=== PATIENT | female | born 1975 | race Hispanic/Latino ===

== ENCOUNTER 2017-12-28 01:16 | Emergency (ER) | payer OTHER ==
[~2017-12-28] VITALS: Ht 162.6 cm; Wt 122.5 kg
[2017-12-28] MEDS ORDERED: SODIUM CHLORIDE 0.9% 1000ML 1,000 ML IV STA (01:48)
[2017-12-28] MEDS ORDERED: ONDANSETRON HCL INJ 2 MG/ML VIAL IV STA (01:48)
[2017-12-28] MEDS ORDERED: KETOROLAC TROMETHAMINE 30 MG/ML VIAL IV STA (01:48)
[2017-12-28] MEDS ORDERED: MORPHINE SULFATE 2 MG/ML SYR IV STA (01:48)
[2017-12-28 02:22] LABS: BASOPHILS # (AUTO) 0.1 (0.0-0.1); BASOPHILS % 0.4 % (0.0-1.0); EOSINOPHILS # (AUTO) 0.1 (0.0-0.4); EOSINOPHILS % 1.2 % (0.0-6.0); HEMATOCRIT 32.2 % (34.2-44.1); HEMOGLOBIN 9.9 g/dL (12.0-16.0); LYMPHOCYTES % 17.3 % (18.0-39.1); MEAN CORPUSCULAR HGB CONC 30.7 g/dL (31-35); MEAN CORPUSCULAR VOLUME 74.9 fL (81-99); MONOCYTES # (AUTO) 0.8 (0.2-0.8); MONOCYTES % 6.6 % (4.4-11.3); NEUTROPHILS # (AUTO) 8.8 (2.1-6.9); NEUTROPHILS % 74.2 % (38.7-80.0); PLATELET COUNT 393 x10e3/uL (140-360); RED CELL DISTRIBUTION WIDTH 16.9 % (11.7-14.4)
[2017-12-28 02:34] LABS: INR 1.1; PROTHROMBIN TIME 13.4 seconds (11.9-14.5)
[2017-12-28 02:44] LABS: ALANINE AMINOTRANSFERASE 28 IU/L (0-55); ALBUMIN 3.4 g/dL (3.5-5.0); ALKALINE PHOSPHATASE 96 IU/L (40-150); BLOOD UREA NITROGEN 11 mg/dL (7-26); BUN/CREATININE RATIO 15 (6-25); CALCIUM 8.6 mg/dL (8.4-10.2); CARBON DIOXIDE 22 mmol/L (22-29); CHLORIDE 108 mmol/L (98-107); CREATININE, SERUM 0.73 mg/dL (0.57-1.11); EST GLOMERULAR FILTRATION RATE > 60 ML/MIN (60-); GLUCOSE 136 mg/dL (74-118); MAGNESIUM 1.8 MG/DL (1.3-2.1); SODIUM 138 mmol/L (136-145)
[2017-12-28 02:56] LABS: PARTIAL THROMBOPLASTIN TIME 26.3 seconds (23.8-35.5)
--- NOTE | 2017-12-28 03:08 | Diagnostic Imaging Report ---
Exam: Transabdominal pelvic ultrasound Indication: Lower abdominal pain, vaginal bleeding Comparison: None Findings: Grayscale and color Doppler transabdominal images of the pelvis were obtained. The uterus measures 15.8 x 8.9 x 9.1 cm and is anteverted. Uterine fibroid measuring 4.6 x 3.9 x 4.2 cm is seen near the fundus. The endometrial stripe is mildly thickened at 1.7 cm. The right ovary measures 5 x 2.9 x 3.8 cm and the left ovary measures 3.9 x 2.9 x 2.5 cm. No adnexal masses. Trace amount of free pelvic fluid. Findings: Solitary fibroid identified measuring 4.6 cm. Mild thickening of the endometrium to 1.7 cm. Signed by: Dr. Amber Awad M.D. on 12/28/2017 3:04 AM
[2017-12-28 03:47] VITALS: BP 126/90
[2017-12-31] MEDS ORDERED: FERROUS SULFAT325 MG PO (08:31)
[2017-12-31] MEDS ORDERED: PEPCID20 MG PO (08:31)
== END 2017-12-28 04:12 | disposition home or self-care (01) ==
LOC: ER 01:31
DX: N92.1 Excessive and frequent menstruation with irregular cycle (principal); D25.0 Submucous leiomyoma of uterus; R10.2 Pelvic and perineal pain; D50.0 Iron deficiency anemia secondary to blood loss (chronic)
CPT/HCPCS: 36415; 76856; 80053; 83735; 84702; 85025; 85610; 85730; 86850; 86900; 99284; J1885; J2270; J2405; J7030

== ENCOUNTER 2017-12-30 12:51 | Observation (INO) | payer OTHER ==
[2017-12-30] VITALS (7 sets, daily range): BP systolic 106–137; BP diastolic 64–96
[~2017-12-30] VITALS: Ht 160 cm; Wt 122.5 kg
[2017-12-30] MEDS ORDERED: SODIUM CHLORIDE 0.9% 1000ML 1,000 ML IV STA (13:07)
[2017-12-30] MEDS ORDERED: ASPIRIN 81 MG CHEW TAB PO ONE (13:15)
[2017-12-30 14:02] LABS: BASOPHILS % 0.4 % (0.0-1.0); EOSINOPHILS # (AUTO) 0.2 (0.0-0.4); EOSINOPHILS % 1.7 % (0.0-6.0); HEMATOCRIT 25.4 % (34.2-44.1); HEMOGLOBIN 7.7 g/dL (12.0-16.0); LYMPHOCYTES # (AUTO) 2.9 (1.0-3.2); LYMPHOCYTES % 30.6 % (18.0-39.1); MEAN CORPUSCULAR HEMOGLOBIN 23.3 pg (28-32); MEAN CORPUSCULAR HGB CONC 30.3 g/dL (31-35); MEAN CORPUSCULAR VOLUME 76.7 fL (81-99); MONOCYTES # (AUTO) 0.6 (0.2-0.8); MONOCYTES % 6.4 % (4.4-11.3); NEUTROPHILS # (AUTO) 5.8 (2.1-6.9); NEUTROPHILS % 60.5 % (38.7-80.0); PLATELET COUNT 377 x10e3/uL (140-360); RED BLOOD COUNT 3.31 x10e6/uL (3.6-5.1); RED CELL DISTRIBUTION WIDTH 17.2 % (11.7-14.4)
[2017-12-30 14:11] LABS: BILIRUBIN,URINE NEGATIVE (NEGATIVE); CLARITY,URINE SL CLOUDY (CLEAR); COLOR,URINE YELLOW (YELLOW); KETONES,URINE NEGATIVE (NEGATIVE); LEUKOCYTE ESTERASE ,URINE TRACE (NEGATIVE); NITRITE,URINE NEGATIVE (NEGATIVE); PREGNANCY TEST, URINE NEGATIVE (NEGATIVE); PROTEIN,URINE DIPSTICK TRACE (NEGATIVE); URINE UROBILINOGEN 0.2 mg/dL (0.2 - 1)
[2017-12-30 14:19] LABS: INR 1.04; PROTHROMBIN TIME 12.8 seconds (11.9-14.5)
[2017-12-30 14:20] LABS: EPITHELIAL CELLS,URINE FEW /LPF
[2017-12-30 14:20] LABS: PARTIAL THROMBOPLASTIN TIME 17.3 seconds (23.8-35.5)
[2017-12-30 14:21] LABS: RBC,URINE >50 /HPF (0-5); WBC,URINE (MAN) 21-50 /HPF (0-5)
[2017-12-30 14:22] LABS: BACTERIA,URINE FEW /HPF
[2017-12-30 14:29] LABS: ALANINE AMINOTRANSFERASE 21 IU/L (0-55); ALBUMIN 3.5 g/dL (3.5-5.0); ALKALINE PHOSPHATASE 74 IU/L (40-150); ANION GAP 14.2 mmol/L (8-16); BLOOD UREA NITROGEN 11 mg/dL (7-26); BUN/CREATININE RATIO 15 (6-25); CARBON DIOXIDE 23 mmol/L (22-29); CHLORIDE 107 mmol/L (98-107); CREATINE KINASE 68 IU/L (29-168); CREATININE, SERUM 0.71 mg/dL (0.57-1.11); EST GLOMERULAR FILTRATION RATE > 60 ML/MIN (60-); GLUCOSE 110 mg/dL (74-118); LIPASE 40 U/L (8-78); POTASSIUM 4.2 mmol/L (3.5-5.1); SODIUM 140 mmol/L (136-145)
[2017-12-30] MEDS ORDERED: SODIUM CHLORIDE 0.9% 250ML 250 ML IV ONE ×2 (14:45→15:00)
[2017-12-30] MEDS ORDERED: SODIUM CHLORIDE FLUSH 10 ML SYR INJ PRN (15:00)
[2017-12-30] MEDS ORDERED: ONDANSETRON HCL INJ 2 MG/ML VIAL IV PRN (15:00)
--- NOTE | 2017-12-30 15:25 | Diagnostic Imaging Report ---
EXAMINATION: CHEST SINGLE (PORTABLE) INDICATION: Dizziness. Fast heart rate. COMPARISON: None FINDINGS: AP view TUBES and LINES: None. LUNGS: Lungs are not well inflated. Lungs are clear. There is no evidence of pneumonia or pulmonary edema. PLEURA: No pleural effusion or pneumothorax. HEART AND MEDIASTINUM: The cardiomediastinal silhouette is unremarkable. BONES AND SOFT TISSUES: No acute osseous lesion. Soft tissues are unremarkable. UPPER ABDOMEN: No free air under the diaphragm. IMPRESSION: No acute thoracic abnormality. Signed by: Dr. Tomer Ricci M.D. on 12/30/2017 3:21 PM
[2017-12-30] MEDS ORDERED: CEFTRIAXONE SOD 1 GM VIAL IV SCH (15:30)
[2017-12-30 15:52] LABS: FERRITIN 10.93 ng/mL (4.63-204.00)
[2017-12-30] MEDS ORDERED: MORPHINE SULFATE 2 MG/ML SYR IV PRN (17:00)
[2017-12-30] MEDS ORDERED: LEVOFLOXACIN 500MG/D5W 100ML 100 ML IV SCH ×2 (17:00→20:00)
[2017-12-30] MEDS ORDERED: METOPROLOL SUCC25 MG PO (17:17)
[2017-12-31 00:20] VITALS: BP 131/80
[2017-12-31 00:32] VITALS: BP 135/82
[2017-12-31 00:40] VITALS: BP 120/70
[2017-12-31 05:27] VITALS: BP 124/74
[2017-12-31 06:28] LABS: BASOPHILS # (AUTO) 0.1 (0.0-0.1); BASOPHILS % 0.5 % (0.0-1.0); EOSINOPHILS # (AUTO) 0.1 (0.0-0.4); EOSINOPHILS % 1.4 % (0.0-6.0); HEMATOCRIT 29.4 % (34.2-44.1); HEMOGLOBIN 9.7 g/dL (12.0-16.0); LYMPHOCYTES # (AUTO) 3.1 (1.0-3.2); LYMPHOCYTES % 33.6 % (18.0-39.1); MEAN CORPUSCULAR HEMOGLOBIN 25.9 pg (28-32); MEAN CORPUSCULAR VOLUME 78.4 fL (81-99); MONOCYTES # (AUTO) 0.7 (0.2-0.8); MONOCYTES % 7.1 % (4.4-11.3); NEUTROPHILS # (AUTO) 5.1 (2.1-6.9); NEUTROPHILS % 56.1 % (38.7-80.0); PLATELET COUNT 367 x10e3/uL (140-360); RED BLOOD COUNT 3.75 x10e6/uL (3.6-5.1); RED CELL DISTRIBUTION WIDTH 17.2 % (11.7-14.4)
[2017-12-31 07:34] VITALS: BP 124/74
[2017-12-31 08:00] VITALS: BP 123/87
[2017-12-31] MEDS ORDERED: FERROUS SULFAT325 MG PO (08:31)
[2017-12-31] MEDS ORDERED: PEPCID20 MG PO (08:31)
[2017-12-31] MEDS ORDERED: METOPROLOL SUCCINATE 25 MG TAB XL PO SCH (09:00)
[2017-12-31] MEDS ORDERED: SODIUM FERRIC GLUCONATE COMPLX 125 MG in SODIUM CHLORIDE 0.9% 100 ML 100 ML IV SCH (09:00)
--- NOTE | 2017-12-31 09:45 | Discharge Summary ---
PRINCIPAL DIAGNOSES 1. Microcytic anemia. 2. Iron deficiency anemia, status post blood transfusion. 3. Urinary tract infection. 4. Hypertension. SECONDARY DIAGNOSIS: Hypertension. CHIEF COMPLAINT: Vaginal bleeding. HISTORY OF PRESENT ILLNESS: A 42-year-old woman with prolonged vaginal bleeding. Refer to the H and P for further details. HOSPITAL COURSE: Patient had prolonged vaginal bleeding for 22 days. This is typical for her. She has not seen a speech language therapist in the last 11 years. She was given 2 units of packed red blood cells and IV iron infusion. Will be discharged home with oral iron and Pepcid. Also, treated for urinary tract infection with Levaquin. She will follow up with [facility] for gynecology evaluation tomorrow. SOLOMON BOWSER MD Job#: [id number] [place]
--- NOTE | 2017-12-31 10:26 | History and Physical ---
PRIMARY CARE PHYSICIAN: Dr. Bowden CHIEF COMPLAINT: Fatigue and vaginal bleeding. HISTORY OF PRESENT ILLNESS: A 42-year-old woman with a history of anemia and prolonged vaginal bleeding, who has not seen an AUTOMATIC EDGER in the last 11 years, now having continued vaginal bleeding ongoing for 22 days. She normally has periods lasting about 22 days. Uses about 8 pads a day. She has not seen a spring internship in the last 11 years. Here she was found to be anemic. She was admitted for further evaluation and management. Denies any abdominal pain or pelvic pain. PAST MEDICAL HISTORY: Anemia, hyperlipidemia, hypertension, prolonged vaginal bleeding. PAST SURGICAL HISTORY: Cholecystectomy. ALLERGIES: PER ELECTRONIC MEDICAL RECORD. FAMILY HISTORY/SOCIAL HISTORY: Patient is . She has 3 children. No alcohol, illicits or cigarettes. MEDICATIONS: Per electronic medical record. REVIEW OF SYSTEMS: Denies any dizziness or chest pain. PHYSICAL EXAMINATION VITAL SIGNS: Reviewed. GENERAL: A tired-appearing woman resting in bed. HEENT: Anicteric. CARDIOVASCULAR: Normal S1 and S2. LUNGS: Moderate breath sounds. ABDOMEN: Soft, nontender and nondistended. EXTREMITIES: No edema or calf tenderness. NEUROLOGICAL: Alert and oriented times 3. Moving all extremities. SKIN: Dry. PSYCHIATRIC: Normal affect. LABS: Reviewed. MEDICATIONS: Reviewed. ASSESSMENT: This is a 42-year-old woman with: 1. Microcytic anemia. 2. Iron deficiency anemia. 3. Urinary tract infection. 4. Hypertension. 5. Menorrhagia. PLAN 1. Transfuse 2 units of blood. 2. Give IV iron. 3. Start on ferrous sulfate. The patient is iron deficient. 4. Treat with Levaquin for urinary tract infection. 5. I have counseled the patient on need to see an AUTOMATIC EDGER, although her insurance does not cover it. We will set her up with the [facility] for AUTOMATIC EDGER evaluation tomorrow. 6. Patient will likely be discharged later today. Job#: [id number] [place]
[2017-12-31] MEDS ORDERED: FAMOTIDINE 20 MG TAB PO SCH (16:30)
[2017-12-31] MEDS ORDERED: FERROUS SULFATE 325 MG TAB PO SCH (17:00)
== END 2017-12-31 10:35 | disposition home or self-care (01) ==
LOC: ER 12:51 → ERHOLD 15:03 → MED/SURG2 15:33
PROVIDERS: ADMIT Internal Medicine; ATTEND Internal Medicine
DX: D50.9 Iron deficiency anemia, unspecified (principal); D64.9 Anemia, unspecified; N92.0 Excessive and frequent menstruation with regular cycle; N39.0 Urinary tract infection, site not specified; I10 Essential (primary) hypertension
CPT/HCPCS: 36430; P9016; 36415; 71045; 80053; 81001; 81025; 82550; 82553; 82728; 83540; 83690; 84466; 84484; 85025; 85610; 85730; 86850; 86900; 86920; 87086; 93005; 99284; G0378; J0696; J1956; J2916; J7030

== ENCOUNTER 2018-01-11 05:20 | Emergency (ER) | payer OTHER ==
[~2018-01-11] VITALS: Ht 160 cm; Wt 122.5 kg
[~2018-01-11 05:20] MED LIST: FERROUS SULFAT325 MG PO; METOPROLOL SUCC25 MG PO; PEPCID20 MG PO
[2018-01-11 05:51] LABS: BASOPHILS % 0.5 % (0.0-1.0); EOSINOPHILS # (AUTO) 0.2 (0.0-0.4); EOSINOPHILS % 2.4 % (0.0-6.0); HEMATOCRIT 36.3 % (34.2-44.1); HEMOGLOBIN 11.3 g/dL (12.0-16.0); LYMPHOCYTES # (AUTO) 2.9 (1.0-3.2); LYMPHOCYTES % 34.1 % (18.0-39.1); MEAN CORPUSCULAR HEMOGLOBIN 25.5 pg (28-32); MEAN CORPUSCULAR HGB CONC 31.1 g/dL (31-35); MEAN CORPUSCULAR VOLUME 81.9 fL (81-99); MONOCYTES # (AUTO) 0.5 (0.2-0.8); MONOCYTES % 6.1 % (4.4-11.3); NEUTROPHILS # (AUTO) 4.8 (2.1-6.9); NEUTROPHILS % 56.5 % (38.7-80.0); PLATELET COUNT 441 x10e3/uL (140-360); RED BLOOD COUNT 4.43 x10e6/uL (3.6-5.1); RED CELL DISTRIBUTION WIDTH 18.5 % (11.7-14.4)
[2018-01-11 06:07] LABS: ALANINE AMINOTRANSFERASE 21 IU/L (0-55); ALBUMIN 3.7 g/dL (3.5-5.0); ALKALINE PHOSPHATASE 103 IU/L (40-150); ANION GAP 14.4 mmol/L (8-16); BLOOD UREA NITROGEN 14 mg/dL (7-26); BUN/CREATININE RATIO 19 (6-25); CALCIUM 9.1 mg/dL (8.4-10.2); CARBON DIOXIDE 20 mmol/L (22-29); CHLORIDE 108 mmol/L (98-107); CREATININE, SERUM 0.72 mg/dL (0.57-1.11); EST GLOMERULAR FILTRATION RATE > 60 ML/MIN (60-); GLUCOSE 98 mg/dL (74-118); POTASSIUM 4.4 mmol/L (3.5-5.1); SODIUM 138 mmol/L (136-145)
[2018-01-11 06:48] VITALS: BP 132/87
--- NOTE | 2018-01-11 06:57 | Diagnostic Imaging Report ---
EXAMINATION: CHEST SINGLE (PORTABLE) INDICATION: Shortness of breath COMPARISON: 12/30/2017 FINDINGS: TUBES and LINES: None. LUNGS: Lungs are not well inflated. Lungs are clear. There is no evidence of pneumonia or pulmonary edema. PLEURA: No pleural effusion or pneumothorax. HEART AND MEDIASTINUM: The cardiomediastinal silhouette is unremarkable. BONES AND SOFT TISSUES: No acute osseous lesion. Soft tissues are unremarkable. UPPER ABDOMEN: No free air under the diaphragm. IMPRESSION: No acute thoracic abnormality. Signed by: Dr. Carlito Bell M.D. on 01/11/2018 6:54 AM
== END 2018-01-11 06:59 | disposition home or self-care (01) ==
LOC: ER 05:20
DX: R00.2 Palpitations (principal); R07.89 Other chest pain; N92.0 Excessive and frequent menstruation with regular cycle; D64.9 Anemia, unspecified; I10 Essential (primary) hypertension; J45.909 Unspecified asthma, uncomplicated
CPT/HCPCS: 36415; 71045; 80053; 82550; 82553; 84484; 85025; 86850; 86900; 93005; 99284

== ENCOUNTER 2018-01-30 15:27 | Observation (INO) | payer OTHER ==
[~2018-01-30] VITALS: Ht 160 cm; Wt 101.6 kg
[2018-01-30] MEDS ORDERED: SODIUM CHLORIDE 0.9% 1000ML 1,000 ML IV STA (15:46)
[2018-01-30] MEDS ORDERED: ONDANSETRON HCL INJ 2 MG/ML VIAL IV PRN (16:00)
[2018-01-30] MEDS ORDERED: ACETAMINOPHEN 325 MG TAB PO PRN (16:00)
[2018-01-30 16:04] LABS: BASOPHILS % 0.5 % (0.0-1.0); EOSINOPHILS # (AUTO) 0.2 (0.0-0.4); LYMPHOCYTES # (AUTO) 3.1 (1.0-3.2); LYMPHOCYTES % 36.8 % (18.0-39.1); MEAN CORPUSCULAR HGB CONC 31.2 g/dL (31-35); MEAN CORPUSCULAR VOLUME 80.1 fL (81-99); MONOCYTES # (AUTO) 0.6 (0.2-0.8); MONOCYTES % 7.1 % (4.4-11.3); NEUTROPHILS # (AUTO) 4.5 (2.1-6.9); NEUTROPHILS % 53.2 % (38.7-80.0); PLATELET COUNT 413 x10e3/uL (140-360); RED BLOOD COUNT 2.76 x10e6/uL (3.6-5.1)
[2018-01-30 16:10] LABS: HEMATOCRIT 22.1 % (34.2-44.1); HEMOGLOBIN 6.9 g/dL (12.0-16.0)
[2018-01-30] MEDS ORDERED: SODIUM CHLORIDE 0.9% 1000ML 1,000 ML IV ONE (16:30)
--- NOTE | 2018-01-30 16:32 | Diagnostic Imaging Report ---
PROCEDURE: A single AP view of the chest. COMPARISON: None. INDICATIONS: HIGH HR, SOB, CHEST PAIN TODAY FINDINGS: Lines/tubes: None. Lungs: The lungs are well inflated and clear. There is no evidence of pneumonia or pulmonary edema. Pleura: There is no pleural effusion or pneumothorax. Heart and mediastinum: The heart and the mediastinum are unremarkable. Bones: No acute bony abnormality. IMPRESSION: 1. No acute cardiopulmonary abnormalities. Cornelio Reyez M.D. Dictated by: Cornelio Reyez M.D. on 01/30/2018 at 16:37 Electronically approved by: Cornelio Reyez M.D. on 01/30/2018 at 16:37
[2018-01-30 16:48] LABS: ANION GAP 14.6 mmol/L (8-16); BLOOD UREA NITROGEN 7 mg/dL (8-26); BUN/CREATININE RATIO 9 (6-25); CARBON DIOXIDE 26 mmol/L (22-32); CHLORIDE 104 mmol/L (101-111); CREATININE, SERUM 0.8 mg/dL (0.6-1.1); EST GLOMERULAR FILTRATION RATE > 60 ML/MIN (60-); POTASSIUM 3.6 mmol/L (3.6-5.1); SODIUM 141 mmol/L (136-144)
[2018-01-30 16:49] LABS: GLUCOSE 105 mg/dL (74-118)
[2018-01-30] MEDS ORDERED: FAMOTIDINE 20 MG/2 ML VIAL IV NR (17:00)
[2018-01-30] MEDS ORDERED: DIPHENHYDRAMINE HCL INJ 50 MG/ML VIAL IV NR (17:00)
[2018-01-30] MEDS ORDERED: ACETAMINOPHEN 325 MG TAB PO NR (17:00)
[2018-01-30 17:33] VITALS: BP 153/74
[2018-01-30 20:00] VITALS: BP 144/86
[2018-01-30 21:33] VITALS: BP 144/86
[2018-01-30 21:34] LABS: ALANINE AMINOTRANSFERASE 21 IU/L (0-55); ALBUMIN 3.9 g/dL (3.5-5.0); ALBUMIN/GLOBULIN RATIO 1.5 (0.8-2.0); ALKALINE PHOSPHATASE 84 IU/L (40-150); CREATINE KINASE 181 IU/L (29-168); MAGNESIUM 2.1 MG/DL (1.3-2.1)
[2018-01-30] MEDS ORDERED: SODIUM CHLORIDE 0.9% 250ML 250 ML ONE (21:56)
[2018-01-30] MEDS: FERROUS SULFATE 325 MG TAB PO SCH (22:00)
[2018-01-30 22:27] LABS: FERRITIN 9.37 ng/mL (4.63-204.00)
[2018-01-30] MEDS: MEDROXYPROGESTERONE ACETATE 2.5 MG TAB PO SCH (23:29)
--- NOTE | 2018-01-30 23:58 | History and Physical ---
PRIMARY CARE PHYSICIAN: Dr. Elmo Jain CHIEF COMPLAINT: Fatigue and weakness. HISTORY OF PRESENT ILLNESS: This is a 42-year-old woman with a history of vaginal bleeding, who had lost lot of blood on Monday secondary to vaginal bleeding. Has not been able to see a blender snuff since followup in the clinic with me due to problems with obtaining her Gold Card, now patient feeling fatigue, weak, brought to hospital by her , found to have a hemoglobin of 6.9. She is admitted for transfusion and further evaluation and management. PAST MEDICAL HISTORY: Anemia status post transfusion, hyperlipidemia, hypertension, prolonged vaginal bleeding, urinary tract infection, morbid obesity. PAST SURGICAL HISTORY: Cholecystectomy. ALLERGIES: PER ELECTRONIC MEDICAL RECORD. FAMILY/SOCIAL HISTORY: Patient is . She has 3 children. No alcohol, illicits, or cigarettes. MEDICATIONS: Per electronic medical record. REVIEW OF SYSTEMS: Denies any dizziness, chest pain, shortness of breath, fever, chills, sweats, nausea, vomiting, diarrhea. PHYSICAL EXAMINATION: VITAL SIGNS: Have been reviewed. GENERAL APPEARANCE: Tired-appearing woman resting in bed. HEENT: Anicteric. Pupils respond to light. No oral lesions. CARDIOVASCULAR: Normal S1 and S2. LUNGS: Moderate breath sounds. ABDOMEN: Soft, nontender, nondistended. EXTREMITIES: No edema or calf tenderness. NEUROLOGICAL: Alert and oriented x3. Moving all extremities. SKIN: Dry. PSYCHIATRIC: Normal affect. LABS: Reviewed. MEDICATIONS: Reviewed. ASSESSMENT: [id number]-old woman: 1. Severe anemia. 2. Morbid obesity. 3. Vaginal bleeding. 4. Hypertension. PLAN: 1. Obtain anemia panel. 2. Give 2 to 3 units packed red blood cells transfusion. 3. Screen for diabetes and obtain a lipid panel. 4. Use SCD and Pepcid. 5. Start patient on medroxyprogesterone until she is able to see a blender snuff. Job#: [id number]
[2018-01-31] VITALS: BP 138/82
[2018-01-31 04:00] VITALS: BP 128/78
[2018-01-31 04:50] LABS: BASOPHILS % 0.5 % (0.0-1.0); EOSINOPHILS # (AUTO) 0.2 (0.0-0.4); EOSINOPHILS % 2.5 % (0.0-6.0); HEMATOCRIT 27.9 % (34.2-44.1); LYMPHOCYTES # (AUTO) 2.9 (1.0-3.2); LYMPHOCYTES % 37.8 % (18.0-39.1); MEAN CORPUSCULAR HEMOGLOBIN 26.2 pg (28-32); MEAN CORPUSCULAR HGB CONC 32.3 g/dL (31-35); MEAN CORPUSCULAR VOLUME 81.1 fL (81-99); MONOCYTES # (AUTO) 0.7 (0.2-0.8); MONOCYTES % 9.1 % (4.4-11.3); NEUTROPHILS # (AUTO) 3.8 (2.1-6.9); NEUTROPHILS % 49.8 % (38.7-80.0); PLATELET COUNT 388 x10e3/uL (140-360); RED BLOOD COUNT 3.44 x10e6/uL (3.6-5.1); RED CELL DISTRIBUTION WIDTH 15.8 % (11.7-14.4)
[2018-01-31 05:13] LABS: CREATINE KINASE 127 IU/L (29-168)
[2018-01-31 06:08] LABS: CHOL/HDL RATIO 2.7 (3.0-3.6)
[2018-01-31] MEDS ORDERED: MEDROXYPROGEST2.5 MG PO (06:27)
[2018-01-31] MEDS ORDERED: FAMOTIDINE 20 MG TAB PO SCH (07:30)
[2018-01-31 07:38] VITALS: BP 128/78
[2018-01-31 07:47] VITALS: BP 117/76
--- NOTE | 2018-01-31 08:20 | Discharge Summary ---
PRINCIPAL DIAGNOSES 1. Severe anemia. 2. Morbid obesity. 3. Vaginal bleeding. 4. Hypertension. SECONDARY DIAGNOSIS: Vaginal bleeding. CHIEF COMPLAINT: Fatigue. HISTORY OF PRESENT ILLNESS: This is a 42-year-old woman with a history of vaginal bleeding now developing fatigue. Refer to the H and P for further details. HOSPITAL COURSE: The patient was found to have severe anemia and received 3 units of packed red blood cell transfusion. Hemoglobin improved to 9. She has also been started on medroxyprogesterone for her vaginal bleeding. She will follow up with her auxiliary powerplant operator soon as soon as the insurance permits. DISCHARGE MEDICATIONS: Per electronic medical record. FOLLOWUP 1. Primary care doctor in 1 week. 2. Railway Yard Assistant in 3-5 days. SOLOMON BOWSER MD Job#: [id number] [place]
[2018-01-31] MEDS: FERROUS SULFATE 325 MG TAB PO SCH (08:30)
[2018-01-31] MEDS: MEDROXYPROGESTERONE ACETATE 2.5 MG TAB PO SCH (08:53)
[2018-01-31] MEDS ORDERED: METOPROLOL SUCCINATE 25 MG TAB XL PO SCH (09:00)
== END 2018-01-31 09:15 | disposition home or self-care (01) ==
LOC: ER 15:27 → ERHOLD 16:20 → IMCU 17:10
PROVIDERS: ADMIT Internal Medicine; ATTEND Internal Medicine
DX: D64.9 Anemia, unspecified (principal); R07.89 Other chest pain; N93.9 Abnormal uterine and vaginal bleeding, unspecified; E66.01 Morbid (severe) obesity due to excess calories; I10 Essential (primary) hypertension; E78.5 Hyperlipidemia, unspecified; R53.83 Other fatigue; Z68.39 Body mass index [BMI] 39.0-39.9, adult
CPT/HCPCS: 36415 ×2; 36430 ×3; 71045; 80053; 80061; 82550 ×2; 82553 ×2; 82607; 82728; 83036; 83540; 83735; 83880; 84466; 84484 ×2; 84702; 85025 ×2; 86850; 86900; 86920; 93005; 99284; G0378 ×2; J7030; J7050; P9016 ×2; J2405

== ENCOUNTER 2018-02-25 06:18 | Emergency (ER) | payer OTHER ==
[~2018-02-25] VITALS: Ht 160 cm; Wt 101.6 kg
[~2018-02-25 06:18] MED LIST changes: +MEDROXYPROGEST2.5 MG PO
[2018-02-25] MEDS ORDERED: SODIUM CHLORIDE 0.9% 1000ML 1,000 ML IV STA (06:36)
[2018-02-25 06:58] LABS: BASOPHILS % 0.7 % (0.0-1.0); EOSINOPHILS # (AUTO) 0.1 (0.0-0.4); EOSINOPHILS % 2.3 % (0.0-6.0); HEMATOCRIT 32.7 % (34.2-44.1); HEMOGLOBIN 10.1 g/dL (12.0-16.0); LYMPHOCYTES # (AUTO) 1.9 (1.0-3.2); LYMPHOCYTES % 31.2 % (18.0-39.1); MEAN CORPUSCULAR HGB CONC 30.9 g/dL (31-35); MEAN CORPUSCULAR VOLUME 84.1 fL (81-99); MONOCYTES # (AUTO) 0.4 (0.2-0.8); MONOCYTES % 6.9 % (4.4-11.3); NEUTROPHILS # (AUTO) 3.6 (2.1-6.9); NEUTROPHILS % 58.6 % (38.7-80.0); PLATELET COUNT 362 x10e3/uL (140-360); RED BLOOD COUNT 3.89 x10e6/uL (3.6-5.1)
[2018-02-25 07:00] LABS: INR 1.06
[2018-02-25 07:01] LABS: PARTIAL THROMBOPLASTIN TIME 27.5 seconds (23.8-35.5)
[2018-02-25 07:08] LABS: ALANINE AMINOTRANSFERASE 17 IU/L (0-55); ALBUMIN 3.6 g/dL (3.5-5.0); ALBUMIN/GLOBULIN RATIO 1.2 (0.8-2.0); ALKALINE PHOSPHATASE 65 IU/L (40-150); BLOOD UREA NITROGEN 11 mg/dL (7-26); BUN/CREATININE RATIO 15 (6-25); CALCIUM 8.8 mg/dL (8.4-10.2); CARBON DIOXIDE 23 mmol/L (22-29); CHLORIDE 106 mmol/L (98-107); CREATININE, SERUM 0.74 mg/dL (0.57-1.11); EST GLOMERULAR FILTRATION RATE > 60 ML/MIN (60-); GLUCOSE 106 mg/dL (74-118); SODIUM 138 mmol/L (136-145)
[2018-02-25 07:52] VITALS: BP 103/67
== END 2018-02-25 07:54 | disposition home or self-care (01) ==
LOC: ER 06:18
DX: N93.9 Abnormal uterine and vaginal bleeding, unspecified (principal); D25.0 Submucous leiomyoma of uterus
CPT/HCPCS: 36415; 80053; 84702; 85025; 85610; 85730; 86850; 86900; 93005; 99284; J7030

== ENCOUNTER 2024-07-22 21:53 | Emergency (ER) | payer OTHER ==
[~2024-07-22] VITALS: Ht 165.1 cm; Wt 108.9 kg
[2024-07-22] MEDS: ACETAMINOPHEN 325 MG TAB PO ONE (22:19)
[2024-07-22 22:25] LABS: BASOPHILS # (AUTO) 0.1 (0.0-0.1); BASOPHILS % 0.7 % (0.0-1.0); EOSINOPHILS # (AUTO) 0.3 (0.0-0.4); EOSINOPHILS % 3.7 % (0.0-6.0); HEMATOCRIT 42.2 % (34.2-44.1); HEMOGLOBIN 12.9 g/dL (12.0-16.0); LYMPHOCYTES # (AUTO) 3.2 (1.0-3.2); LYMPHOCYTES % 44.4 % (18.0-39.1); MEAN CORPUSCULAR HEMOGLOBIN 26.9 pg (28-32); MEAN CORPUSCULAR HGB CONC 30.6 g/dL (31-35); MEAN CORPUSCULAR VOLUME 88.1 fL (81-99); MONOCYTES # (AUTO) 0.5 (0.2-0.8); MONOCYTES % 7.3 % (4.4-11.3); NEUTROPHILS # (AUTO) 3.2 (2.1-6.9); NEUTROPHILS % 43.8 % (38.7-80.0); PLATELET COUNT 330 x10e3/uL (140-360); RED BLOOD COUNT 4.79 x10e6/uL (3.6-5.1); RED CELL DISTRIBUTION WIDTH 13.4 % (11.7-14.4); WHITE BLOOD COUNT 7.26 x10e3/uL (4.8-10.8)
[2024-07-22] MEDS: ONDANSETRON HCL INJ 2MG/ML 2ML 2 MG/ML VIAL IV STA (22:30)
[2024-07-22 22:47] LABS: ALBUMIN 4.2 g/dL (3.5-5.0); ALBUMIN/GLOBULIN RATIO 1.2 (0.8-2.0); ANION GAP 14.5 mmol/L (8-16); BILIRUBIN,TOTAL 0.3 mg/dL (0.2-1.2); CALCIUM 9.5 mg/dL (8.4-10.2); CREATININE, SERUM 0.8 mg/dL (0.57-1.11); POTASSIUM 3.5 mmol/L (3.5-5.1); TOTAL PROTEIN 7.6 g/dL (6.5-8.1)
[2024-07-22 22:53] LABS: CORONAVIRUS COVID-19 AG NEGATIVE (NEGATIVE); INFLUENZA A AG NEGATIVE (NEGATIVE); INFLUENZA B AG NEGATIVE (NEGATIVE)
[2024-07-22 22:54] LABS: STREPTOCOCCUS GRP A ANTIGEN NEGATIVE (NEGATIVE)
[2024-07-22 22:58] LABS: BILIRUBIN,URINE NEGATIVE (NEGATIVE); CLARITY,URINE CLEAR (CLEAR); COLOR,URINE YELLOW (YELLOW); GLUCOSE, URINE NEGATIVE (NEGATIVE); KETONES,URINE NEGATIVE (NEGATIVE); LEUKOCYTE ESTERASE ,URINE NEGATIVE (NEGATIVE); NITRITE,URINE NEGATIVE (NEGATIVE); PH,URINE 6.5 (5 - 7); PROTEIN,URINE DIPSTICK NEGATIVE (NEGATIVE); URINE UROBILINOGEN 0.2 mg/dL (0.2 - 1)
[2024-07-22 23:10] LABS: RBC,URINE 0-5 /HPF (0-5); WBC,URINE (MAN) 0-5 /HPF (0-5)
[2024-07-22 23:11] LABS: BACTERIA,URINE MODERATE /HPF; EPITHELIAL CELLS,URINE FEW /LPF; RENAL EPITHELIAL CELLS,URINE FEW
[2024-07-23 00:45] VITALS: PULSE 65; RESP 16; TEMP 98.6; O2SAT 100
== END 2024-07-23 00:47 | disposition home or self-care (01) ==
LOC: ER 22:00
DX: R51.9 Headache, unspecified (principal); D64.9 Anemia, unspecified; J45.909 Unspecified asthma, uncomplicated; R11.0 Nausea
CPT/HCPCS: 36415; 70450; 80053; 81001; 83518; 85025; 87070; 87428; 99284; J2405

== ENCOUNTER 2025-04-30 19:48 | Emergency (ER) | payer OTHER ==
[~2025-04-30] VITALS: Ht 165.1 cm; Wt 108.9 kg
[2025-04-30 20:56] LABS: BASOPHILS % 0.5 % (0.0-1.0); EOSINOPHILS % 4.8 % (0.0-6.0); LYMPHOCYTES % 33.4 % (18.0-39.1); MONOCYTES % 6.4 % (4.4-11.3); NEUTROPHILS % 54.6 % (38.7-80.0); RED CELL DISTRIBUTION WIDTH 13.2 % (11.7-14.4)
[2025-04-30 20:56] LABS: EST GLOMERULAR FILTRATION RATE 70.0 ML/MIN (>=60)
[2025-04-30] MEDS: MAGNESIUM/ALUMINUM/SIMETHICONE 30 ML UDC PO STA (21:45)
[2025-04-30] MEDS: LIDOCAINE VISC 2% SOLN 15 ML UDC PO STA (21:45)
[2025-04-30] MEDS: BELLADONNA ALK/PHENOBARBITAL 5 ML UDC PO ONE (21:45)
[2025-04-30 22:00] VITALS: PULSE 68; RESP 18; TEMP 98.7; O2SAT 98
== END 2025-04-30 22:00 | disposition home or self-care (01) ==
LOC: ER 19:52
DX: R06.02 Shortness of breath (principal); R07.89 Other chest pain; R10.13 Epigastric pain; D64.9 Anemia, unspecified; J45.909 Unspecified asthma, uncomplicated
CPT/HCPCS: 36415; 71045; 80053; 82550; 83690; 83880; 84484; 85025; 93005; 99284